=== PATIENT | male | born 1960 | race Native Hawaiian/Other Pacific Islander ===

== ENCOUNTER 2016-04-26 22:01 | Emergency (ER) | payer OTHER ==
[~2016-04-26] VITALS: Ht 188 cm; Wt 117.9 kg
[2016-04-26] MEDS ORDERED: LORA1TAB17 PO (22:27)
[2016-04-26] MEDS ORDERED: UNITH DIRECT75 MCG PO (22:29)
[2016-04-26] MEDS ORDERED: FURO40TA93 PO (22:30)
[2016-04-26] MEDS ORDERED: CODELIQ8 PO (22:31)
[2016-04-26] MEDS ORDERED: CEFUROXIME500 MG OR (22:34)
[2016-04-26] MEDS ORDERED: PERCOCET1 TA1 PO (22:35)
[2016-04-26] MEDS ORDERED: OMEP40CA PO (22:36)
[2016-04-26] MEDS ORDERED: KLOR-CON M2020 MEQ OR (22:37)
[2016-04-26] MEDS ORDERED: VALSARTAN160 MG PO (22:37)
[2016-04-26] MEDS ORDERED: PROAIR HFA IN (22:38)
[2016-04-26] MEDS ORDERED: BREO ELLIPTA 101 INH IN (22:39)
[2016-04-26 23:41] VITALS: BP 145/82; TEMP 98.1
== END 2016-04-26 23:45 | disposition home or self-care (01) ==
LOC: ED 22:01
DX: N13.2 Hydronephrosis with renal and ureteral calculous obstruction (principal)
CPT/HCPCS: 96372; 99283; J1885

== ENCOUNTER 2016-10-18 05:01 | Emergency (ER) | payer OTHER ==
[~2016-10-18] VITALS: Ht 188 cm; Wt 113.4 kg
[~2016-10-18 05:01] MED LIST: BREO ELLIPTA 101 INH IN; CEFUROXIME500 MG OR; CODELIQ8 PO; FURO40TA93 PO; KLOR-CON M2020 MEQ OR; LORA1TAB17 PO; OMEP40CA PO; PERCOCET1 TA1 PO; PROAIR HFA IN; UNITH DIRECT75 MCG PO; VALSARTAN160 MG PO
[2016-10-18 05:35] LABS: PLATELET COUNT 212 K/uL (142-355)
[2016-10-18 05:42] LABS: POTASSIUM 3.3 mmol/L (3.6-5.2)
[2016-10-18 08:30] VITALS: BP 126/61; TEMP 97.7
== END 2016-10-18 08:39 | disposition home or self-care (01) ==
LOC: ED 05:01
DX: N20.1 Calculus of ureter (principal); R10.9 Unspecified abdominal pain; R11.2 Nausea with vomiting, unspecified
CPT/HCPCS: 36415; 80053; 81000; 85027; 96360; 96361; 96375; 99284; J1885; J2405

== ENCOUNTER 2017-02-07 09:36 | Outpatient (CLI) | payer OTHER | END 2017-02-07 10:40 | disposition home or self-care (01) | LOC: US 09:36 | DX: R10.11 Right upper quadrant pain (principal) ==

== ENCOUNTER 2017-04-18 10:10 | Observation (INO) | payer OTHER ==
[~2017-04-18] VITALS: Ht 185.4 cm; Wt 114.9 kg
[2017-04-18 10:52] VITALS: BP 124/81; TEMP 97.7; Ht 185.4 cm; Wt 114.9 kg
[2017-04-18 11:42] LABS: PLATELET COUNT 249 K/uL (142-355)
[2017-04-18 12:25] LABS: POTASSIUM 3.9 mmol/L (3.6-5.2); SODIUM 133 mmol/L (136-145)
[2017-04-18] MEDS ORDERED: DIOVAN HCT160 MG/25 PO (12:30)
[2017-04-18] MEDS ORDERED: VALSARTAN160 MG PO (12:32)
[2017-04-18] MEDS ORDERED: TAMSULOSIN0.4 MG PO (12:32)
[2017-04-18 16:03] VITALS: BP 130/68; TEMP 97.6
[2017-04-18 19:39] VITALS: BP 114/69; TEMP 98
[2017-04-18 23:41] VITALS: BP 110/63; TEMP 98.2
[2017-04-19 04:00] VITALS: BP 117/64; TEMP 97.8
[2017-04-19 07:50] VITALS: BP 125/71; TEMP 98.3
[2017-04-19 11:49] VITALS: BP 145/85; TEMP 97.2
== END 2017-04-19 12:33 | disposition home or self-care (01) ==
LOC: MED/SURG 10:10
PROVIDERS: ADMIT Specialist
DX: R07.89 Other chest pain (principal); R06.02 Shortness of breath; E03.8 Other specified hypothyroidism; I10 Essential (primary) hypertension; N40.0 Benign prostatic hyperplasia without lower urinary tract symptoms; K21.9 Gastro-esophageal reflux disease without esophagitis
CPT/HCPCS: 36415; 36600; 80053; 82550; 82553; 82805; 83615; 83880; 84484; 85027; 87040; 87070; 87205; 87899; 93005; 94640; 94664; 94760; 99220; G0378; G0379; J2270

== ENCOUNTER 2017-06-18 08:23 | Outpatient (CLI) | payer OTHER ==
[~2017-06-18 08:23] MED LIST changes: +DIOVAN HCT160 MG/25 PO; +TAMSULOSIN0.4 MG PO
== END 2017-06-18 21:46 | disposition home or self-care (01) ==
LOC: RESP 08:23
DX: R06.02 Shortness of breath (principal)
CPT/HCPCS: 94640; 94664

== ENCOUNTER 2017-08-08 13:48 | Outpatient (CLI) | payer OTHER | END 2017-08-08 23:44 | disposition home or self-care (01) | LOC: CT 13:48 | DX: J98.11 Atelectasis (principal); Z12.2 Encounter for screening for malignant neoplasm of respiratory organs; R91.8 Other nonspecific abnormal finding of lung field ==

== ENCOUNTER 2018-01-09 09:55 | Outpatient (CLI) | payer OTHER | END 2018-01-09 19:16 | disposition home or self-care (01) | LOC: MRI 09:55 | DX: M54.9 Dorsalgia, unspecified (principal) ==

== ENCOUNTER 2019-03-12 08:03 | Outpatient (CLI) | payer OTHER ==
[~2019-03-12] VITALS: Ht 188 cm; Wt 120.2 kg
[2019-03-12 08:15] VITALS: BP 141/86; TEMP 98.9
== END 2019-03-12 09:32 | disposition home or self-care (01) ==
LOC: INF 08:03
DX: I12.9 Hypertensive chronic kidney disease with stage 1 through stage 4 chronic kidney disease, or unspecified chronic kidney disease (principal); N18.3 Chronic kidney disease, stage 3 (moderate)
CPT/HCPCS: 96365; J1439

== ENCOUNTER 2019-03-26 08:28 | Outpatient (CLI) | payer OTHER ==
[~2019-03-26] VITALS: Ht 185.4 cm; Wt 117.9 kg
[2019-03-26 08:40] VITALS: BP 154/95; TEMP 98.2
== END 2019-03-26 10:05 | disposition home or self-care (01) ==
LOC: INF 08:28
DX: I12.9 Hypertensive chronic kidney disease with stage 1 through stage 4 chronic kidney disease, or unspecified chronic kidney disease (principal); N18.3 Chronic kidney disease, stage 3 (moderate)
CPT/HCPCS: 96365; J1439

== ENCOUNTER 2019-05-08 16:34 | Observation (INO) | payer OTHER ==
[~2019-05-08] VITALS: Ht 185.4 cm; Wt 115.9 kg
[2019-05-08 16:47] VITALS: BP 190/95; TEMP 100.6
[2019-05-08 17:45] LABS: PLATELET COUNT 191 K/uL (142-355)
[2019-05-08 17:53] LABS: POTASSIUM 2.8 mmol/L (3.6-5.2); SODIUM 140 mmol/L (136-145)
[2019-05-08 18:16] VITALS: BP 140/70; TEMP 103.1
[2019-05-08 19:28] VITALS: BP 131/65; TEMP 99.2
[2019-05-08 19:52] VITALS: BP 135/65; TEMP 99.1; Ht 185.4 cm; Wt 115.9 kg
[2019-05-09] VITALS: BP 128/67; TEMP 97.5
[2019-05-09 03:58] VITALS: BP 128/67; TEMP 98.1
[2019-05-09] MEDS ORDERED: CARV12.5 PO (04:28)
[2019-05-09] MEDS ORDERED: AMLODIPINE BESYLATE PO (04:29)
[2019-05-09 05:31] LABS: POTASSIUM 3.6 mmol/L (3.6-5.2)
[2019-05-09 08:00] VITALS: BP 138/69; TEMP 97.6
[2019-05-09] MEDS ORDERED: LEVAQUIN250 MG PO (12:27)
--- NOTE | 2019-05-09 14:42 | NUR ---
PT GIVEN DC INSTRUCTIONS. PT INSTRUCTED LEVUIN 750 MG PO DAILY X 7 DAYS IS SENT TO HIS PHARMACY. PT INSTRUCTED TO F/U WITH PCP IN 3-5 DAYS. PT VERBALIZES UNDERSTANDING. PT DC VIA WC.
== END 2019-05-09 14:45 | disposition home or self-care (01) ==
LOC: ED 16:34 → MED/SURG 19:12
PROVIDERS: Internal Medicine; ADMIT Emergency Medicine
DX: A41.89 Other specified sepsis (principal); J09.X1 Influenza due to identified novel influenza A virus with pneumonia; J10.1 Influenza due to other identified influenza virus with other respiratory manifestations; E87.6 Hypokalemia; E83.42 Hypomagnesemia; J44.9 Chronic obstructive pulmonary disease, unspecified; E03.8 Other specified hypothyroidism; N40.0 Benign prostatic hyperplasia without lower urinary tract symptoms; I12.9 Hypertensive chronic kidney disease with stage 1 through stage 4 chronic kidney disease, or unspecified chronic kidney disease; N18.3 Chronic kidney disease, stage 3 (moderate); Z72.0 Tobacco use
CPT/HCPCS: 36415; 80048; 80053; 83735; 84484; 85027; 87502; 93005; 94640; 94664; 94760; 96360; 96361; 96365; 96375; 99220; 99284; G0378; J1956; J2930; J3475

== ENCOUNTER 2021-03-19 14:35 | Outpatient (CLI) | payer OTHER ==
[~2021-03-19 14:35] MED LIST changes: +AMLODIPINE BESYLATE PO; +CARV12.5 PO; +LEVAQUIN250 MG PO
== END 2021-03-19 22:11 | disposition home or self-care (01) ==
LOC: RAD 14:35
PROVIDERS: ATTEND Nurse Practitioner
DX: R06.02 Shortness of breath (principal)

== ENCOUNTER 2021-11-13 05:41 | Emergency (ER) | payer OTHER ==
[~2021-11-13] VITALS: Ht 188 cm; Wt 108.9 kg
[2021-11-13 05:41] VITALS: TEMP 99.3
[2021-11-13 06:16] LABS: PLATELET COUNT 175 K/uL (142-355)
[2021-11-13 06:22] LABS: POTASSIUM 4.8 mmol/L (3.6-5.2)
[2021-11-13 08:31] VITALS: BP 134/62
== END 2021-11-13 08:33 | disposition home or self-care (01) ==
LOC: ED 05:41
PROVIDERS: Emergency Medicine Emergency Medical Services
DX: R11.2 Nausea with vomiting, unspecified (principal); R19.7 Diarrhea, unspecified; N20.0 Calculus of kidney
CPT/HCPCS: 36600; 80053; 80307; 81000; 82150; 82805; 83690; 83735; 83880; 84484; 85027; 93005; 96360; 96374; 96376; 99284; J2270; J2405; J3490